=== PATIENT | male | born 2000 | race Caucasian/White ===

== ENCOUNTER 2019-05-23 00:48 | Emergency (ER) | payer OTHER ==
[~2019-05-23] VITALS: Ht 182.9 cm; Wt 59.0 kg
[2019-05-23 01:30] LABS: ABSOLUTE BASOPHILS 0.1 thou/uL (0.0-0.2); ABSOLUTE EOSINOPHILS 0.1 thou/uL (0.0-0.7); ABSOLUTE MONOCYTES 0.5 thou/uL (0.0-1.2); ABSOLUTE NEUTROPHILS 2.7 thou/uL (1.6-8.1); BASOPHILS 1.1 %; EOSINOPHILS 1.5 %; HEMATOCRIT 43.3 % (42.0-52.0); LYMPHOCYTES 46.5 %; MCH 31.3 pg (26.0-34.0); MCHC 34.7 g/dL (28.0-37.0); MCV 90.3 fL (80.0-100.0); MONOCYTES 7.8 %; MPV 8.2 fl. (7.2-11.1); NUCLEATED RBCS 0 /100WBC; PLATELET COUNT* 220 thou/uL (150-400); POLYS 43.1 %; RBC 4.79 mil/uL (4.50-6.00); RDW-CV 12.7 % (10.5-14.5); WBC 6.4 thou/uL (4.0-11.0)
[2019-05-23 01:41] LABS: CALCIUM 9.6 mg/dL (8.5-10.1); POTASSIUM 3.9 mmol/L (3.5-5.1)
[2019-05-23 02:28] LABS: ESR (SEDRATE) 1 mm/hr (0-15)
[2019-05-23 04:51] VITALS: BP 122/76
== END 2019-05-23 04:52 | disposition home or self-care (01) ==
LOC: M.ERS 00:48
PROVIDERS: Personal Emergency Response Attendant
DX: H53.461 Homonymous bilateral field defects, right side (principal)